=== PATIENT | female | born 1960 | race Caucasian/White ===

== ENCOUNTER → 2016-10-01 | Outpatient (CLI) | payer OTHER ==
[~2016-10-01] MED LIST: ASCO10003 PO; CALC600T9 PO; CHOL1000 PO; CODCAP PO; CYAN6000 PO; GLUCTAB7 PO; MAGN500T4 PO; MULT-513 PO; ZINC30TA3 PO
[2016-10-01 16:36] LABS: HEMATOCRIT 37.7 % (37-47); MEAN CELL VOLUME 92.4 fL (80-100); MEAN CORPUSCULAR HEMOGLOBIN 31.6 pg (25-34); MEAN CORPUSCULAR HGB CONC 34.2 g/dl (32-36); MEAN PLATELET VOLUME 12.3 fL (7.4-10.4); PLATELET COUNT 198 K/uL (130-400); RED BLOOD COUNT 4.08 M/uL (4.2-5.4); WHITE BLOOD COUNT 3.77 K/uL (4.8-10.8)
[2016-10-01 17:01] LABS: BASO % 0.3 %; BASO ABS # 0.01 K/uL (0-0.2); COMPLETE YES; EOS % 1.3 %; LYMPH % 50.9 %; LYMPH ABS # 1.92 K/uL (1.2-3.4); MONO % 4.8 %; NEUT % 42.7 %
[2016-10-01 17:02] LABS: BLOOD UREA NITROGEN 9 mg/dl (7-18); BUN/CREATININE RATIO 10.4 (10-20); CALCIUM 8.7 mg/dl (8.5-10.1); CARBON DIOXIDE 33 mmol/L (21-32); CHLORIDE 102 mmol/L (98-107); CREATININE 0.84 mg/dl (0.60-1.20); GLUCOSE 118 mg/dl (70-99); POTASSIUM 3.8 mmol/L (3.5-5.1); SODIUM 140 mmol/L (136-145)
[2016-10-01 17:12] LABS: FERRITIN 123.3 ng/ml (8.0-388.0)
== END | disposition home or self-care (01) ==
LOC: C.LAB1850 15:13
PROVIDERS: ATTEND Internal Medicine
DX: R53.83 Other fatigue (principal); E83.51 Hypocalcemia

== ENCOUNTER → 2016-12-31 | Outpatient (CLI) | payer OTHER ==
[~2016-12-31] MED LIST changes: -CODCAP PO; +CODCAP4 PO
--- NOTE | 2016-12-31 15:24 | MAMMOGRAPHY REPORT ---
BILATERAL DIGITAL SCREENING MAMMOGRAM TOMOSYNTHESIS WITH CAD: 12/31/2016 CLINICAL HISTORY: Routine screening. Patient has no complaints. TECHNIQUE: Breast tomosynthesis in addition to standard 2D mammography was performed. Current study was also evaluated with a Computer Aided Detection (CAD) system. COMPARISON: Comparison is made to exams dated: 04/27/2016 ultrasound, 11/20/2015 mammogram, 09/24/2014 mammogram, 09/24/2014 ultrasound, 09/18/2014 mammogram, and 09/17/2013 mammogram - [facility]. BREAST COMPOSITION: The tissue of both breasts is heterogeneously dense, which may obscure small ma sses. FINDINGS: No suspicious masses, calcifications, or areas of architectural distortion are noted in e ither breast. There has been no significant interval change compared to prior exams. Scattered bilat eral benign-appearing calcifications are not significantly changed. IMPRESSION: ACR BI-RADS CATEGORY 2: BENIGN There is no mammographic evidence of malignancy. A 1 year screening mammogram is recommended. The p atient will receive written notification of the results. Approximately 10% of breast cancers are not detected with mammography. A negative mammographic repor t should not delay biopsy if a clinically suggestive mass is present. Vale Nguyen M.D. ah/:12/31/2016 14:59:26 Supervisor [employer]: Evie EDDY)(M), [facility] letter sent: Normal 1/2 BI-RADS Code: ACR BI-RADS Category 2: Benign
== END | disposition home or self-care (01) ==
LOC: C.MAMM 10:28
PROVIDERS: ATTEND Obstetrics & Gynecology
DX: Z12.31 Encounter for screening mammogram for malignant neoplasm of breast (principal)

== ENCOUNTER → 2017-04-18 | Outpatient (CLI) | payer OTHER ==
[~2017-04-18] MED LIST changes: +CODCAP PO; -CODCAP4 PO
--- NOTE | 2017-04-18 17:30 | DIAGNOSTIC IMAGING REPORT ---
CHEST 2 VIEWS ROUTINE HISTORY: COUGH, FORMER SMOKER, short of breath, WHEEZING COMPARISON: Chest 08/11/2015. FINDINGS: The lungs are clear. Cardiac silhouette is normal in size. No pleural effusions. No pneumothorax. IMPRESSION: No acute process. Electronically signed by: Quintin Botello M.D. 04/18/2017 5:29 PM Dictated Date/Time: 04/18/2017 5:16 PM
== END | disposition home or self-care (01) ==
LOC: C.RAD1850 16:20
PROVIDERS: ATTEND Nurse Practitioner Adult Health
DX: R05 Cough (principal); Z87.891 Personal history of nicotine dependence; R06.02 Shortness of breath; R06.2 Wheezing

== ENCOUNTER → 2017-05-09 | Outpatient (CLI) | payer OTHER | END | disposition home or self-care (01) | LOC: C.PAPS 11:52 | PROVIDERS: ATTEND Obstetrics & Gynecology | DX: Z01.419 Encounter for gynecological examination (general) (routine) without abnormal findings (principal) ==